=== PATIENT | female | born 1945 | race Asian ===

== ENCOUNTER 2017-09-02 09:04 | Inpatient (IN) | payer OTHER ==
[~2017-09-02] VITALS: Ht 167.6 cm; Wt 54.4 kg
[2017-09-02 09:04] VITALS: BP 142/87
[~2017-09-02 09:04] MED LIST: ALBU-136 IH; DOCU-300 PO; PRED15SO39 PO; PROM25TA85 PO; RANI-287 PO; RIVA15TA1 PO; TYL3 PO
[2017-09-02] MEDS ORDERED: NACL 0.9% 1,000 ML IV SCH (09:14)
[2017-09-02] MEDS ORDERED: ONDANSETRON 4 MG/2 ML VIAL IVP ONE (09:15)
[2017-09-02] MEDS ORDERED: MECLIZINE 25 MG TAB PO ONE (09:15)
[2017-09-02] MEDS ORDERED: DIAZEPAM PFS 10 MG/2 ML SYR IVP ONE (09:15)
[2017-09-02] MEDS ORDERED: LORazepam 2 MG/ML VIAL IVP ONE (09:35)
--- NOTE | 2017-09-02 09:46 | NUR ---
ASSUMED PATIENT CARE, CONCUR WITH TRIAGE. NURSING ASSESSMENT COMPLETED. SEEN AND EVALUATED BY PROVIDER, MSE COMPLETED.
[2017-09-02 10:24] LABS: BASOPHILS # (AUTO) 0.2 K/uL (0.00-0.22); BASOPHILS % (AUTO) 1.5 % (0.0-2.0); EOSINOPHILS # (AUTO) 0.2 K/uL (0-0.4); HEMATOCRIT 33.8 % (36-48); HEMOGLOBIN 11.6 g/dL (12.0-16.0); LYMPHOCYTES # (AUTO) 2.4 K/uL (2.5-16.5); LYMPHOCYTES % (AUTO) 20.3 % (20.5-51.1); MEAN CORPUSCULAR HEMOGLOBIN 30 pg (27-31); MEAN CORPUSCULAR HGB CONC 34 g/dL (33-37); MEAN CORPUSCULAR VOLUME 86 fL (80-94); MONOCYTES # (AUTO) 0.9 K/uL (0.8-1.0); MONOCYTES % (AUTO) 7.4 % (1.7-9.3); NEUTROPHILS # (AUTO) 8.2 K/uL (1.8-7.7); NEUTROPHILS % (AUTO) 68.8 % (42.2-75.2); PLATELET COUNT (AUTO) 366 K/uL (140-450); RED BLOOD CELL COUNT(AUTO) 3.92 MIL/uL (4.20-5.40); RED CELL DISTRIBUTION WIDTH 12.3 % (11.6-13.7); WHITE BLOOD COUNT (AUTO) 11.9 K/uL (4.8-10.8)
[2017-09-02 10:32] LABS: AMYLASE 30 U/L (25-115); LIPASE 103 U/L (73-393)
[2017-09-02 10:46] LABS: ALBUMIN 3.2 g/dL (3.4-5.0); ANION GAP 15.7 (8-16); ASPARTATE AMINOTRANSFERASE 19 U/L (15-37); CHLORIDE 108 mmol/L (98-107); CREATININE 0.9 mg/dL (0.6-1.3); GLUCOSE 135 mg/dL (74-106); SODIUM SERUM 143 mmol/L (136-145); TOTAL BILIRUBIN 0.7 mg/dL (0.0-1.0); UREA NITROGEN, BLOOD 16 mg/dL (7-18)
[2017-09-02 10:49] LABS: POTASSIUM 2.7 mmol/L (3.5-5.1)
[2017-09-02] MEDS ORDERED: KCL 20 MEQ/WATER INJ PREMIX 100 ML IV ONE (10:50)
[2017-09-02] MEDS ORDERED: METOCLOPRAMIDE 10 MG/2 ML INJ VIAL IVP ONE (11:10)
[2017-09-02] MEDS ORDERED: MECLIZINE 25 MG TAB PO PRN (12:05)
[2017-09-02] MEDS ORDERED: ONDANSETRON 4 MG/2 ML VIAL IVP PRN (12:05)
[2017-09-02] MEDS ORDERED: ACETAMINOPHEN 325 MG TAB PO PRN (12:05)
[2017-09-02] MEDS ORDERED: HYDROcodone/APAP 7.5/325 MG 1 TAB PO PRN (12:05)
--- NOTE | 2017-09-02 12:45 | NUR ---
Patient will be admitted to care of [facility]. Admited to TELEMETRY. Will go to room 112A. Belongings list completed. Report to SUSSY HARRIS AT BEDSIDE.
--- NOTE | 2017-09-02 12:45 | NUR ---
PATIENT TRANSFERRED TO INPATIENT UNIT VIA GURNEY, AND ACLS PROTOCOL. CONTINUITY OF CARE ENDORSED.
--- NOTE | 2017-09-02 12:50 | NUR ---
PT ARRIVED ON THE UNIT WITH 2 ER NURSES. PT IS AWAKE AND ORIENTED. INTRODUCED MYSELF AND UPDATED THE BOARD. PT IS CANTONESE SPEAKING. SON IS AT BEDSIDE. SPEAKS VERY LITTLE UKRAINIAN. V/S WITHIN NORMAL RANGE. SKIN INTACT. TELE MONITOR ON, YELLOW SOCKS ON, YELLOW SIGN AT DOOR, YELLOW ARM BAND ON, MRSA SCREENING DONE. PT NAUSEATED. DRY HEAVES. GAVE EXTRA VOMIT BAGS. WILL KEEP PT COMFORTABLE. WILL CONTINUE TO MONITOR PT.
[2017-09-02 13:30] VITALS: BP 129/82
[2017-09-02 13:58] LABS: PROTHROMBIN TIME 10.3 secs (10.8-13.4)
[2017-09-02 14:16] LABS: CHOL/HDL RATIO 4.5 (1-4.5); FREE T4 (FREE THYROXINE) 1.12 ng/dL (0.76-1.46); MAGNESIUM 1.9 mg/dL (1.8-2.4); PHOSPHORUS 2.5 mg/dL (2.5-4.9); THYROID STIMULATING HORMONE 0.84 uIU/mL (0.34-3.74)
[2017-09-02] MEDS ORDERED: AMLO5TAB PO (14:49)
[2017-09-02] MEDS ORDERED: MONT10TA35 PO (14:49)
[2017-09-02] MEDS ORDERED: OMEP40EC14 PO (14:49)
[2017-09-02] MEDS ORDERED: CETI-32 PO (14:49)
[2017-09-02] MEDS ORDERED: [UNRECOGNIZED DRUG - CODE] PO (14:49)
[2017-09-02] MEDS ORDERED: CLOP75TA26 PO (14:52)
[2017-09-02] MEDS ORDERED: POTASSIUM CHLORIDE 40 MEQ, LIDOCAINE 1% 25 MG in NACL 0.9% 250 ML IV SCH (15:00)
[2017-09-02] MEDS ORDERED: NITROGLYCERIN 0.4 MG TAB SL PRN (15:00)
--- NOTE | 2017-09-02 15:00 | NUR ---
URINE SAMPLE SENT TO LAB. INFLUENZA AB SCREENING DONE. REQUESTED SCD'S. WILL CONTINUE TO MONITOR PT.
[2017-09-02] MEDS ORDERED: ALBUTEROL SULFATE/IPRATROPIU 3 ML SOL IH PRN (15:15)
[2017-09-02] MEDS: METOCLOPRAMIDE 10 MG/2 ML INJ VIAL IVP PRN (15:18)
[2017-09-02] MEDS: NACL 0.9% 1,000 ML IV SCH ×2 (15:19→21:16)
--- NOTE | 2017-09-02 15:20 | NUR ---
ADMINISTERED REGLAN FOR NAUSEA. WILL CONTINUE TO MONITOR PT. SON STILL AT BEDSIDE. REQUESTED BED BOWDEN.
[2017-09-02] MEDS ORDERED: INFLUENZA VIRUS VACCINE QUAD 0.5 ML SYR IMVAC SCH (15:35)
[2017-09-02] MEDS ORDERED: PNEUMOCOCCAL VACCINE 23 MCG/0.5 ML VIAL IMVAC SCH (15:35)
[2017-09-02 16:00] VITALS: BP 118/76
[2017-09-02 16:11] LABS: BARBITURATE, URINE NEG. ng/ml (NEG <=200); BENZODIAZEPINE, URINE NEG. ng/mL (NEG <=200); CANNABINOID, URINE NEG. ng/mL (NEG <=50); COCAINE, URINE NEG. ng/mL (NEG <=300); OPIATE, URINE NEG. ng/mL (NEG <=2000); PHENCYCLIDINE SCREEN,URINE NEG. ng/mL (NEG <=25)
--- NOTE | 2017-09-02 18:41 | NUR ---
PT SLEEPING. DAUGHTER IN LAW WENT HOME TO SHOWER. WILL BE BACK LATER WITH HER . DINNER AT BEDSIDE. WILL TRY AND EAT AFTER SHE WAKES UP.
[2017-09-02 18:44] LABS: APPEARANCE,URINE CLEAR (CLEAR); BILIRUBIN,URINE NEGATIVE (NEGATIVE); BLOOD, URINE 2+ (NEGATIVE); COLOR,URINE YELLOW (YELLOW); LEUKOCYTE ESTERASE ,URINE NEGATIVE (NEGATIVE); NITRITE, URINE NEGATIVE (NEGATIVE); PH,URINE 6.5 (5.0-9.0); UGLUCOSE NEGATIVE (NEGATIVE)
[2017-09-02 18:47] LABS: RBC,URINE 11-20 (MOD) /HPF (0-5); WBC,URINE 0-5 (RARE) /HPF (0-5)
--- NOTE | 2017-09-02 19:10 | NUR ---
ENDORSED PT TO THE VOTING MACHINE REPAIRER NURSE AT BEDSIDE FOR CONTINUITY OF CARE. PT IN STABLE CONDITION.
--- NOTE | 2017-09-02 19:15 | NUR ---
RECEIVED PT FROM KIMBERLY RN PT RESTING ON BED AAOX4 IV ON RT ARM INFUSING WELL COMPLAINTS FOR NAUSEAS DENIES ANY PAIN NOT DISTRESS NOTED INITIAL ASSESSMENT DONE
[2017-09-02 19:58] LABS: ANION GAP 17.6 (8-16); CARBON DIOXIDE 21.8 mmol/L (21-32); CHLORIDE 106 mmol/L (98-107); CREATININE 0.8 mg/dL (0.6-1.3); GLUCOSE 117 mg/dL (74-106); POTASSIUM 4.4 mmol/L (3.5-5.1); SODIUM SERUM 141 mmol/L (136-145); UREA NITROGEN, BLOOD 13 mg/dL (7-18)
[2017-09-02 20:00] VITALS: BP 118/63
--- NOTE | 2017-09-02 20:00 | NUR ---
PT IS ASSISTED TO USED BED BOWDEN VOIDING WELL YELLOW URINE
--- NOTE | 2017-09-02 20:10 | NUR ---
PT IS ENDORSED TO JEFRY HI FOR CONTINUITY ;OF CARE
[2017-09-02] MEDS ORDERED: DOCUSATE SODIUM 100 MG GELCAP PO SCH (21:00)
[2017-09-02] MEDS: DOCUSATE SODIUM 100 MG GELCAP PO SCH (21:16)
[2017-09-02] MEDS: ATORVASTATIN 20 MG TAB PO SCH (21:16)
[2017-09-02] MEDS: METOPROLOL 25 MG TAB PO SCH (21:17)
[2017-09-02] MEDS: THEOPHYLLINE 300 MG TABER PO SCH (21:17)
--- NOTE | 2017-09-02 22:15 | NUR ---
ASSISTED PT TO BATHROOM. NO C/O PAIN OR DIZZINESS. DAUGHTER IN LAW AT BEDSIDEE. CALL LIGHT WITHIN REACH.
[2017-09-03] VITALS: BP 110/66
--- NOTE | 2017-09-03 00:30 | NUR ---
PT SLEEPING BUT WAKES EASILY. DAUGHTER IN LAW AT BEDSIDE. NO S/S OF DISTRESS. CALL LIGHT WITHIN REACH.
[2017-09-03] MEDS: METOCLOPRAMIDE 10 MG/2 ML INJ VIAL IVP PRN (01:53)
--- NOTE | 2017-09-03 01:55 | NUR ---
ASSISTED PT TO BATHROOM. C/O VOMITING. REGLAN 10 MG GIVEN. DAUGHTER IN LAW AT BED SIDE. CALL LIGHT WITHIN REACH.
--- NOTE | 2017-09-03 03:54 | NUR ---
ASSISTED PT TO BATHROOM AND BACK TO BED. NO C/O DIZZINESS OR NAUSEA. FALL PRECAUTION IN PLACE. CALL LIGHT WITHIN REACH.
[2017-09-03 04:00] VITALS: BP 106/60
[2017-09-03] MEDS: NACL 0.9% 1,000 ML IV SCH ×3 (04:27→21:01)
[2017-09-03] MEDS: PANTOPRAZOLE 40 MG TABEC PO SCH (06:06)
--- NOTE | 2017-09-03 06:10 | NUR ---
DUE MED GIVEN. PT TOLERATED WELL. NO C/O NAUSEA OR VOMITING. NO DISTRESS NOTED. CALL LIGHT WITHIN REACH.
--- NOTE | 2017-09-03 07:20 | NUR ---
ENDORSED PT TO DAY SHIFT NURSE. PT IN STABLE CONDITION.
[2017-09-03 07:42] LABS: BASOPHILS # (AUTO) 0.1 K/uL (0.00-0.22); BASOPHILS % (AUTO) 0.9 % (0.0-2.0); EOSINOPHILS # (AUTO) 0.2 K/uL (0-0.4); EOSINOPHILS % (AUTO) 1.7 % (0.0-4.0); HEMATOCRIT 35.9 % (36-48); HEMOGLOBIN 12.1 g/dL (12.0-16.0); LYMPHOCYTES # (AUTO) 2.3 K/uL (2.5-16.5); LYMPHOCYTES % (AUTO) 24.8 % (20.5-51.1); MEAN CORPUSCULAR HEMOGLOBIN 29 pg (27-31); MEAN CORPUSCULAR HGB CONC 34 g/dL (33-37); MEAN CORPUSCULAR VOLUME 87 fL (80-94); MONOCYTES # (AUTO) 0.7 K/uL (0.8-1.0); MONOCYTES % (AUTO) 7.4 % (1.7-9.3); NEUTROPHILS # (AUTO) 6.2 K/uL (1.8-7.7); NEUTROPHILS % (AUTO) 65.2 % (42.2-75.2); PLATELET COUNT (AUTO) 369 K/uL (140-450); RED BLOOD CELL COUNT(AUTO) 4.15 MIL/uL (4.20-5.40); RED CELL DISTRIBUTION WIDTH 12.4 % (11.6-13.7); WHITE BLOOD COUNT (AUTO) 9.5 K/uL (4.8-10.8)
[2017-09-03 07:48] LABS: ANION GAP 12.4 (8-16); CARBON DIOXIDE 26.2 mmol/L (21-32); CHLORIDE 109 mmol/L (98-107); CREATININE 0.9 mg/dL (0.6-1.3); GLUCOSE 97 mg/dL (74-106); POTASSIUM 3.6 mmol/L (3.5-5.1); SODIUM SERUM 144 mmol/L (136-145); UREA NITROGEN, BLOOD 12 mg/dL (7-18)
[2017-09-03 07:52] LABS: MAGNESIUM 2.3 mg/dL (1.8-2.4); PHOSPHORUS 3.4 mg/dL (2.5-4.9)
[2017-09-03 08:00] VITALS: BP 114/74
--- NOTE | 2017-09-03 08:00 | NUR ---
PT IN BED SLEEPING CALMLY. ABLE TO AROUSE EASOLY VIA VERBAL COMMAND. PT IS AERT AND ORIENTED X4. NO RESP DISTRESS NOTED. SIDE RAILS UP X4, BED IN LOW POSITION. V/S STABLE.
--- NOTE | 2017-09-03 08:54 | NUR ---
PT HAS BEEN SCREENED AND CATEGORIZED MODERATE NUTIRITON RISK. PT WILL BE SEEN WITHIN 3-5 DAYS OF ADMISSION. 09/03/17-09/05/[address]
--- NOTE | 2017-09-03 09:20 | NUR ---
PT REMAINS CALM IN BED. NO ACUTE DISTRESS OR CONDITION CHANGES NOTED. [id number] IS AT THE BED SITE TRANSLATING FOR PT. PT AMBULATED WITH PT WITH MON ASSISTANCE. PT DENIES ANY DIZZINESS, PAIN OR SOB. V/S STABLE.
[2017-09-03] MEDS: ASPIRIN 81 MG TAB.CHEW PO SCH (09:39)
[2017-09-03] MEDS: LORATADINE 10 MG TAB PO SCH (09:39)
[2017-09-03] MEDS: DOCUSATE SODIUM 100 MG GELCAP PO SCH ×2 (09:40→20:58)
[2017-09-03] MEDS: METOPROLOL 25 MG TAB PO SCH ×2 (09:41→21:00)
[2017-09-03] MEDS: MONTELUKAST SODIUM 10 MG TAB PO SCH (09:42)
[2017-09-03] MEDS: CLOPIDOGREL 75 MG TAB PO SCH (09:42)
[2017-09-03] MEDS: LISINOPRIL 5 MG TAB PO SCH (09:43)
[2017-09-03] MEDS: amLODIPine 5 MG TAB PO SCH (09:50)
[2017-09-03] MEDS: THEOPHYLLINE 300 MG TABER PO SCH ×2 (09:51→20:59)
[2017-09-03 12:00] VITALS: BP 102/60
--- NOTE | 2017-09-03 13:39 | NUR ---
PT IS SLEEPING IN BED COMFORTABLY. NO DISTRESS OR PAIN NOTED. COOLING MEASURE IN PROGRESS DUE TO LOW GRADE TEMP OF 99.3 AT NOON. PT REFUSE TO EAT THE MEALS PROVIDED HERE IN THE HOSPITAL. [id number] STATES THAT PT PREFER MEALS FROM HOME AND SHE BROUGHT PT SOME.
--- NOTE | 2017-09-03 15:40 | NUR ---
PT AWAKE SITTING IN BED TALKING TO HER [id number]. TEMP IS DOWN TO 98.4. NO ACUTE DISTRESSOR PAIN. PT REMAINS IN NORMAL SINUS RHYTHM ON THE MONITOR. V/S STABLE.
[2017-09-03 16:00] VITALS: BP 97/57
--- NOTE | 2017-09-03 19:08 | NUR ---
PT IN BED SLEEPING OFF AND ON. NO COMPALINT OF PAIN, SOB OR DIZZINESS. PT WAS ASYMPTOMATIC WITH BP OF 97/57 AT 1600. REMAINS IN NSR ON THE MONITOR. CALL LIGHT WITHIN REACH, BED IN LOW POSITION, BED ALARM ON.
--- NOTE | 2017-09-03 19:15 | NUR ---
RECEIVED PT AWAKE ON BED, AAOX4, MANDARIN SPEAKING ONLY, VITAL SIGNS TAKEN, BP ON THE LOW SIDE BUT STABLE, NO SIGNS OF PAIN, OCCASIONAL COUGH NOTED, NO N/V AT THIS TIME, IVF INFUSING WELL, SAFETY MEASURES IN PLACE, CALL LIGHT WITHIN REACH.
[2017-09-03 20:00] VITALS: BP 92/56
[2017-09-03] MEDS: ATORVASTATIN 20 MG TAB PO SCH (20:59)
--- NOTE | 2017-09-03 22:20 | NUR ---
PT AMBULATORY TO BR WITH STANDBY ASSIST, VOIDED FREELY, PER DAUGHTER, PT STILL HAVING SLIGHT DIZZINESS ON AMBULATION, MONITORED CLOSELY.
[2017-09-04] VITALS: BP 94/60
--- NOTE | 2017-09-04 | NUR ---
PT SLEEPING, EASILY AROUSABLE, VITAL SIGNS STABLE, DENIES ANY PAIN, AMBULATED TO BR WITH ASSIST, SAFETY MEASURES IN PLACE, IVF INFUSING WELL CONTINUE TO MONITOR CLOSELY.
[2017-09-04 04:00] VITALS: BP 104/62
--- NOTE | 2017-09-04 04:00 | NUR ---
PT SLEEPING, EASILY AROUSABLE, VITAL SIGNS STABLE, NO DISTRESS NOTED, MONITORED CLOSELY.
[2017-09-04] MEDS: NACL 0.9% 1,000 ML IV SCH (04:44)
[2017-09-04] MEDS: PANTOPRAZOLE 40 MG TABEC PO SCH (06:01)
--- NOTE | 2017-09-04 06:10 | NUR ---
PT AWAKE, DUE PO MEDICATION ADMINISTERED, NO N/V THE WHOLE SHIFT, IVF INFUSING WELL, FOR US THYROID TODAY, MONITORED CLOSELY.
--- NOTE | 2017-09-04 07:15 | NUR ---
PT SLEEPING, NO SIGNS OF DISTRESS, REPORT GIVEN TO SUSSY GARCIA FOR CONTINUITY OF CARE.
--- NOTE | 2017-09-04 07:20 | NUR ---
ENDORSEMENT RECEIVED FROM FEED HANDLER NURSE. PATIENT IS AWAKE, ALERT. RESPIRATION EVEN, UNLABOR. SKIN DRY AND WARM. IV PATENT AND INTACT. DENIED PAIN, DIZZINESS AT THIS TIME. PLAN OF CARE WAS DISCUSSED WITH PATIENT. BED AT LOW POSITION, SIDE RAILS UP. CALL LIGHT WITHIN REACH.
[2017-09-04 07:44] LABS: BASOPHILS # (AUTO) 0.1 K/uL (0.00-0.22); BASOPHILS % (AUTO) 1.4 % (0.0-2.0); EOSINOPHILS # (AUTO) 0.2 K/uL (0-0.4); EOSINOPHILS % (AUTO) 2.6 % (0.0-4.0); HEMATOCRIT 35.1 % (36-48); HEMOGLOBIN 11.6 g/dL (12.0-16.0); LYMPHOCYTES % (AUTO) 25.5 % (20.5-51.1); MEAN CORPUSCULAR HEMOGLOBIN 29 pg (27-31); MEAN CORPUSCULAR HGB CONC 33 g/dL (33-37); MEAN CORPUSCULAR VOLUME 88 fL (80-94); MONOCYTES # (AUTO) 0.7 K/uL (0.8-1.0); NEUTROPHILS # (AUTO) 4.8 K/uL (1.8-7.7); NEUTROPHILS % (AUTO) 61.5 % (42.2-75.2); PLATELET COUNT (AUTO) 319 K/uL (140-450); RED BLOOD CELL COUNT(AUTO) 3.98 MIL/uL (4.20-5.40); RED CELL DISTRIBUTION WIDTH 12.3 % (11.6-13.7); WHITE BLOOD COUNT (AUTO) 7.8 K/uL (4.8-10.8)
[2017-09-04 08:00] VITALS: BP 115/63
[2017-09-04 08:02] LABS: ANION GAP 14.4 (8-16); CARBON DIOXIDE 24.8 mmol/L (21-32); CHLORIDE 110 mmol/L (98-107); POTASSIUM 3.2 mmol/L (3.5-5.1); SODIUM SERUM 146 mmol/L (136-145)
[2017-09-04 08:25] LABS: CREATININE 0.9 mg/dL (0.6-1.3); GLUCOSE 100 mg/dL (74-106); UREA NITROGEN, BLOOD 10 mg/dL (7-18)
[2017-09-04] MEDS: CLOPIDOGREL 75 MG TAB PO SCH (09:00)
[2017-09-04] MEDS: METOPROLOL 25 MG TAB PO SCH (09:00)
[2017-09-04] MEDS: THEOPHYLLINE 300 MG TABER PO SCH (09:00)
[2017-09-04] MEDS: MONTELUKAST SODIUM 10 MG TAB PO SCH (09:00)
[2017-09-04] MEDS: ASPIRIN 81 MG TAB.CHEW PO SCH (09:01)
[2017-09-04] MEDS: LORATADINE 10 MG TAB PO SCH (09:01)
[2017-09-04] MEDS: DOCUSATE SODIUM 100 MG GELCAP PO SCH (09:01)
[2017-09-04] MEDS: LISINOPRIL 5 MG TAB PO SCH (09:01)
[2017-09-04] MEDS: amLODIPine 5 MG TAB PO SCH (09:01)
[2017-09-04] MEDS ORDERED: MECL-272 PO (09:12)
[2017-09-04] MEDS ORDERED: ONDA4TAB PO (09:18)
[2017-09-04] MEDS ORDERED: KCL 20 MEQ/WATER INJ PREMIX 200 ML IV ONE (11:30)
--- NOTE | 2017-09-04 11:53 | NUR ---
DR. FREIRE WAS MADE OF AWARE OF POTASSIUM LEVEL 3.2. WILL MEDICATE PER ORDER
[2017-09-04 12:00] VITALS: BP 111/59
[2017-09-04] MEDS ORDERED: POTASSIUM CHLORIDE 40 MEQ in NACL 0.9% 250 ML IV SCH (12:00)
--- NOTE | 2017-09-04 12:36 | NUR ---
PATIENT IS AWAKE, ALERT. RESPIRATION EVEN, UNLABOR ON ROOM AIR. DENIED PAIN, DIZZINESS AT THIS TIME. MED WAS GIVEN PER ORDER. FAMILY AT BEDSIDE. CALL LIGHT WITHIN REACH
--- NOTE | 2017-09-04 13:45 | NUR ---
P/T HERE TO EXERCISE WITH PT.
--- NOTE | 2017-09-04 14:15 | NUR ---
PATIENT IS AWAKE, ALERT. RESPIRATION EVEN, UNLABOR ON ROOM AIR. DENIED DIZZINESS AT THIS TIME. PT AT BEDSIDE. CALL LIGHT WITHIN REACH
[2017-09-04] MEDS ORDERED: POTASSIUM CHLORIDE 10 MEQ TABER PO SCH (14:55)
--- NOTE | 2017-09-04 15:30 | NUR ---
DISCHARGE INSTRUCTION WAS GIVEN TO THE PATIENT AND FAMILY, [place] [id number] [address]. PATIENT VERBALIZED UNDERSTANDING. IV WAS REMOVED CATHETER INTACT, NO ACTIVE BLEEDING SEEN, PATIENT TOLERATED WELL. ID BAND WAS REMOVED. FLU VAC, PNEUMO VAC WERE GIVEN PER ORDER. PATIENT WAS ESCORTED OUT BY STAFF IN WHEELCHAIR. PATIENT IS STABLE AT THIS TIME.
--- NOTE | 2017-09-04 16:15 | NUR ---
Social Service Note: Per patient's nephew Rufus Hickmann , patient does not have a fww at home. I explained to him I will coordinate home health services for patient and fww. He verbalized understanding and stated he does not have a home health company preference. He requested I contact patient's son to verify . Per , patient does not have a fww at home. I faxed home health referral to [facility] , fax . Per Brandy, they will send a nurse to patient's home tomorrow and will obtain fww as well, will be delivered to patient's home, charge nurse Janusz made aware.
--- NOTE | 2017-09-04 16:49 | NUR ---
PHYSICAL THERAPY CO-SIGN The Physical Therapy Progress Notes documented by Supervisor Transferring And Boxing have been reviewed. Reviewed/Co-Signed by: Mercedes Nathan PT Documentation Done by:Gerald BLACK PTA I CONCUR WITH THE DOCUMENTATION COMPLETED BY THE ABOVE MENTAL HEALTH ASSISTANT Addendum: 09/04/17 at 1650 by Mercedes Nathan PT Amended: Links added.
== END 2017-09-04 15:30 | disposition home or self-care (01) | DRG 74 ==
LOC: MED 09:04 → MTU 12:05
PROVIDERS: ADMIT Family Medicine Sports Medicine; ATTEND Family Medicine Sports Medicine
PROC: 3E0234Z Introduction of Serum, Toxoid and Vaccine into Muscle, Percutaneous Approach (ICD-10-PCS; principal; 2017-09-04)
PROC: 3E0234Z Introduction of Serum, Toxoid and Vaccine into Muscle, Percutaneous Approach (ICD-10-PCS; 2017-09-04)
DX: G90.9 Disorder of the autonomic nervous system, unspecified (principal); E44.1 Mild protein-calorie malnutrition; Z68.1 Body mass index [BMI] 19.9 or less, adult; M94.0 Chondrocostal junction syndrome [Tietze]; E87.6 Hypokalemia; K21.9 Gastro-esophageal reflux disease without esophagitis; E78.5 Hyperlipidemia, unspecified; K52.9 Noninfective gastroenteritis and colitis, unspecified; I10 Essential (primary) hypertension; J45.909 Unspecified asthma, uncomplicated; E07.9 Disorder of thyroid, unspecified; Z23 Encounter for immunization; Z86.711 Personal history of pulmonary embolism
CPT/HCPCS: 36415; 70450; 71045; 76536; 80048; 80053; 80305; 81001; 82150; 83036; 83690; 83735; 83880; 84100; 84439; 84443; 84484; 85025; 85610; 85730; 87081; 87086; 87804; 90658; 90732; 93005; 93880; 94640; 96361; 96374; 96375; 97110; 97116; 99285; J2001; J2060; J2405; J2765; J3480; J7030; J8597; Q0092

== ENCOUNTER 2021-02-26 19:06 | Inpatient (IN) | payer OTHER ==
[~2021-02-26] VITALS: Ht 162.6 cm; Wt 68.0 kg
[~2021-02-26 19:06] MED LIST changes: +ALBU-118 IH; -ALBU-136 IH; +AMLO5TAB PO; +CETI10TA81 PO; +CLOP75TA26 PO; +MECL-311 PO; +MONT10TA35 PO; +OMEP40EC23 PO; +ONDA4TAB PO; -PRED15SO39 PO; -PROM25TA85 PO; -RANI-287 PO; -RIVA15TA1 PO; -TYL3 PO; +[UNRECOGNIZED DRUG - CODE] PO
[2021-02-26 19:33] VITALS: BP 122/83
--- NOTE | 2021-02-26 19:48 | NUR ---
75/F BIB SON C/O DIFFICULTY BREATHING, SOB, SORE THROAT, MILD COUGH, AND GENERALIZED WEAKNESS FOR A MONTH AND SYMPT PROGRESSIVELY WORSE. PT STATES SHE FEELS DISCOMFORT EVERYTIME SHE BREATHES DEEP. LUNG MEZA SLIGHTLY DIMINISHED THROUGHOUT. PT DENIES ANY FEVER, NAUSEA, VOMITING, AND CHILLS. RELATIVE AT BEDSIDE. AAOx4. VSS. PMH: Asthma, HTN, HDL NKDA
--- NOTE | 2021-02-26 19:57 | NUR ---
Called for per diem interpreter; language mandarin. Continuous Dryout Operator Helper #[id number]
--- NOTE | 2021-02-26 20:02 | NUR ---
ERMD at bedside for examination
[2021-02-26] MEDS ORDERED: NITROGLYCERIN 2% 1 GM PKT TP ONE (20:10)
--- NOTE | 2021-02-26 20:30 | NUR ---
EKG PERFORMED AT BEDSIDE. EKG READS SINUS RHYTHM @ 79
[2021-02-26 20:32] LABS: BASOPHILS # (AUTO) 0.1 K/uL (0.00-0.22); BASOPHILS % (AUTO) 0.8 % (0.0-2.0); EOSINOPHILS # (AUTO) 0.1 K/uL (0-0.4); EOSINOPHILS % (AUTO) 1.1 % (0.0-4.0); HEMATOCRIT 34.8 % (36-48); HEMOGLOBIN 11.3 g/dL (12.0-16.0); LYMPHOCYTES # (AUTO) 2.2 K/uL (2.5-16.5); LYMPHOCYTES % (AUTO) 25.9 % (20.5-51.1); MEAN CORPUSCULAR HEMOGLOBIN 28 pg (27-31); MEAN CORPUSCULAR HGB CONC 32 g/dL (33-37); MEAN CORPUSCULAR VOLUME 85.4 fL (80-94); MONOCYTES # (AUTO) 0.8 K/uL (0.8-1.0); MONOCYTES % (AUTO) 10.1 % (1.7-9.3); NEUTROPHILS # (AUTO) 5.2 K/uL (1.8-7.7); NEUTROPHILS % (AUTO) 62.1 % (42.2-75.2); PLATELET COUNT (AUTO) 361 K/uL (140-450); RED BLOOD CELL COUNT(AUTO) 4.07 MIL/uL (4.20-5.40); RED CELL DISTRIBUTION WIDTH 14.3 % (11.6-13.7); WHITE BLOOD COUNT (AUTO) 8.4 K/uL (4.8-10.8)
--- NOTE | 2021-02-26 20:32 | NUR ---
xray at bedside.
[2021-02-26 20:49] LABS: ALBUMIN 3.5 g/dL (3.4-5.0); ASPARTATE AMINOTRANSFERASE 70 U/L (15-37); CARBON DIOXIDE 22.2 mmol/L (21-32); CHLORIDE 107 mmol/L (98-107); CREATININE 1.1 mg/dL (0.6-1.3); GLUCOSE 103 mg/dL (74-106); POTASSIUM 3.2 mmol/L (3.5-5.1); SODIUM SERUM 141 mmol/L (136-145); TOTAL BILIRUBIN 0.7 mg/dL (0.0-1.0); UREA NITROGEN, BLOOD 20 mg/dL (7-18)
[2021-02-26] MEDS ORDERED: ASPIRIN 81 MG TAB.CHEW PO ONE (20:55)
--- NOTE | 2021-02-26 21:28 | NUR ---
HANK at bedside for admission explanation. Non Profit Financial Controller called; language mandarin. Non Profit Financial Controller #[phone]
[2021-02-26] MEDS ORDERED: hePARIN / DEXT 5% PREMIX 250 ML IV SCH ×2 (21:50→23:45)
--- NOTE | 2021-02-26 22:18 | NUR ---
Attempted to call report to SU RN but was unable to complete report due to patient care-- RN asked to call back.
--- NOTE | 2021-02-26 22:47 | NUR ---
Attempted to call report to SUSSY BLUE but was unable to complete report due to patient care-- RN asked to call back or call SUSSY Sorto charge.
--- NOTE | 2021-02-26 22:49 | NUR ---
Attempted to call SUSSY Sorto charge for report -- no answer.
--- NOTE | 2021-02-26 23:04 | NUR ---
Patient will be admitted to care of [facility]. Admited to Telemetry. Will go to room 112b. Belongings list completed. Report to Catalina HI.
[2021-02-26] MEDS ORDERED: HEPARIN PER PHARMACY MC PRN (23:45)
--- NOTE | 2021-02-26 23:45 | NUR ---
ER NURSE CALLED GAVE REPORT. PATIENT WAS BROUGHT TO [facility] UNIT VIA GURNEY UNDER THE CARE OF DR. MCKEON. AWAKE, ALERT ORIENTED X4. NO ACUTE DISTRESS NOTED AT THIS TIME. SKIN IS INTACT. ORIENTED TO ROOM, CALL LIGHT, RESTROOM, STAFF. SAFETY MEASURES IN PLACE. MRSA NARES SCREENING DONE. CALL LIGHT WITHIN REACH
[2021-02-27 00:16] LABS: PROTHROMBIN TIME 9.7 secs (10.8-13.4)
[2021-02-27] MEDS ORDERED: ALBU0.0912 INH (00:21)
[2021-02-27] MEDS ORDERED: AMLO2.5T PO (00:21)
[2021-02-27] MEDS ORDERED: MONT10TA35 PO (00:21)
[2021-02-27] MEDS ORDERED: MECL-303 PO (00:21)
[2021-02-27] MEDS ORDERED: CLOP75TA55 PO (00:21)
[2021-02-27] MEDS ORDERED: OMEP20EC11 PO (00:21)
[2021-02-27] MEDS ORDERED: VOL25 PO (00:21)
[2021-02-27] MEDS ORDERED: ONDA4TAB PO (00:21)
[2021-02-27] MEDS ORDERED: CETI1SOL12 PO (00:21)
[2021-02-27] MEDS ORDERED: NACL 0.9% 1,000 ML IV ONE (00:25)
[2021-02-27] MEDS: hePARIN / DEXT 5% PREMIX 250 ML IV SCH ×2 (02:28→09:56)
--- NOTE | 2021-02-27 02:28 | NUR ---
STARTED HEPARIN DRIP INFUSING WELL ON THE RAC.
[2021-02-27 04:00] VITALS: BP 100/63
--- NOTE | 2021-02-27 07:15 | NUR ---
ENDORSED TO AM RN FOR CONTINUITY OF CARE. PATIENT IS STABLE.
--- NOTE | 2021-02-27 07:20 | NUR ---
RECEIVED REPORT FROM NIGHT NURSE PT IS AAOX4 ON ROOM AIR, SKIN INTACT, CARDIAC DIET, IV INTACT ON RIGHT AC WITH HEPARIN DRIP AT 800 UNITS/HR INFUSING WELL, AMBULATORY, SCHEDULED APTT AT 0825. SAFETY MEASURES IN PLACE AND CALL LIGHT WITHIN REACH. WILL CONTINUE TO MONITOR.
[2021-02-27] MEDS ORDERED: POTASSIUM CHLORIDE 10 MEQ TABER PO SCH (07:36)
[2021-02-27 08:00] VITALS: BP 105/70
--- NOTE | 2021-02-27 08:27 | NUR ---
PT VITAL SIGNS TAKEN, PT IS STABLE. POTASSIUM GIVEN FOR POTASSIUM LEVELS OF 3.2. LINE PRODUCER AT BEDSIDE, PT VERBALIZED SOB WHEN TAKING 2-3 STEPS, CANNOT COMPLETE ADL WITHOUT HAVING SOB, LINE PRODUCER RECOMMENDED ECHO AND OTHER TESTS. WILL CONTINUE TO MONITOR.
[2021-02-27] MEDS ORDERED: MECLIZINE 25 MG TAB PO PRN (09:15)
--- NOTE | 2021-02-27 09:18 | NUR ---
PATIENT HAS BEEN SCREENED AND CATEGORIZED MODERATE NUTRITION RISK. PATIENT WILL BE SEEN WITHIN 3-5 DAYS OF ADMISSION. 03/01/21 03/03/[address]
[2021-02-27] MEDS ORDERED: POTASSIUM CHLORIDE 10 MEQ TABER PO PRN (09:20)
[2021-02-27] MEDS ORDERED: LORazepam 2 MG/ML VIAL IM/IVP PRN (09:20)
[2021-02-27] MEDS ORDERED: ACETAMINOPHEN 325 MG TAB PO PRN (09:20)
[2021-02-27] MEDS ORDERED: ONDANSETRON 4 MG/2 ML VIAL IM/IVP PRN (09:20)
[2021-02-27] MEDS ORDERED: MORPHINE SULFATE 2 MG/ML SYR IVP PRN (09:20)
[2021-02-27] MEDS ORDERED: HYDROcodone/APAP 5/325 MG 1 TAB TAB PO PRN (09:20)
[2021-02-27] MEDS ORDERED: MAG SULF 2000 MG/WATER PREMIX 50 ML IV PRN (09:20)
[2021-02-27] MEDS ORDERED: ZOLPIDEM 5 MG TAB PO PRN (09:20)
[2021-02-27] MEDS ORDERED: DOCUSATE SODIUM 100 MG GELCAP PO PRN (09:20)
[2021-02-27 09:36] LABS: BASOPHILS # (AUTO) 0.1 K/uL (0.00-0.22); BASOPHILS % (AUTO) 1.3 % (0.0-2.0); EOSINOPHILS # (AUTO) 0.1 K/uL (0-0.4); EOSINOPHILS % (AUTO) 1.7 % (0.0-4.0); LYMPHOCYTES % (AUTO) 30.5 % (20.5-51.1); MEAN CORPUSCULAR HEMOGLOBIN 28 pg (27-31); MEAN CORPUSCULAR HGB CONC 33 g/dL (33-37); MEAN CORPUSCULAR VOLUME 84.5 fL (80-94); MONOCYTES # (AUTO) 0.6 K/uL (0.8-1.0); MONOCYTES % (AUTO) 8.3 % (1.7-9.3); NEUTROPHILS # (AUTO) 3.9 K/uL (1.8-7.7); NEUTROPHILS % (AUTO) 58.2 % (42.2-75.2); PLATELET COUNT (AUTO) 303 K/uL (140-450); RED BLOOD CELL COUNT(AUTO) 3.56 MIL/uL (4.20-5.40); RED CELL DISTRIBUTION WIDTH 14.7 % (11.6-13.7); WHITE BLOOD COUNT (AUTO) 6.7 K/uL (4.8-10.8)
[2021-02-27 09:52] LABS: ALBUMIN 2.6 g/dL (3.4-5.0); AMYLASE 28 U/L (25-115); ANION GAP 18.8 (8-16); ASPARTATE AMINOTRANSFERASE 40 U/L (15-37); CARBON DIOXIDE 18.3 mmol/L (21-32); CHLORIDE 111 mmol/L (98-107); GLUCOSE 101 mg/dL (74-106); LIPASE 113 U/L (73-393); MAGNESIUM 1.9 mg/dL (1.8-2.4); PHOSPHORUS 3.5 mg/dL (2.5-4.9); POTASSIUM 3.1 mmol/L (3.5-5.1); SODIUM SERUM 145 mmol/L (136-145); THYROID STIMULATING HORMONE 1.88 uIU/mL (0.34-3.74); UREA NITROGEN, BLOOD 16 mg/dL (7-18)
--- NOTE | 2021-02-27 10:00 | NUR ---
PT APTT 42.4 HEPARIN DRIP INCREASED FROM 800 MLS/HR TO 950 MLS/HR AND 2000 UNITS HEPARIN BOLUS GIVEN. SCHEDULED APTT DRAW AT 1600.
[2021-02-27 10:11] LABS: PROTHROMBIN TIME 10.1 secs (10.8-13.4)
[2021-02-27 12:00] VITALS: BP 96/68
[2021-02-27] MEDS: ONDANSETRON 4 MG TAB PO SCH ×2 (12:09→18:25)
--- NOTE | 2021-02-27 12:11 | NUR ---
SCHEDULED MEDICATION GIVEN PT TOLERATED WELL AND PT REFUSED TO EAT.
--- NOTE | 2021-02-27 14:00 | NUR ---
INFORMED DR. MERCHANT OF CONSULT FOR PULMONARY HYPERTENSION. RESPONDED AND IS AWARE OF THIS CONSULT.
--- NOTE | 2021-02-27 15:04 | NUR ---
DC PLANNING: MET WITH PATIENT AND HER SON AT BEDSIDE. PATIENT LIVES IN A SINGLE STORY HOME, C/O SOB AND FATIGUE X 3 MONTHS. EXERTIONAL DYSPNEA NOTED, SATTING 95%. RESIDES WITH HER NEPHEW AND HIS CHILDREN, FAMILY PROVIDES ANY ASSISTANCE NEEDED. PATIENT IS INDEPENDENT IN ALL CARE, NO PRIOR DME OR HOME HEALTH. P.T. RECOMMENDS HOME HEALTH FOR A SAFETY EVAL. CM WILL CONTINUE TO FOLLOW FOR NEEDS. Addendum: 02/28/21 at 1152 by Tiff Gee DC PLANNING: CORRECTION TO LIVING ARRANGEMENTS PATIENT RESIDES WITH HER SON ELIEZER NOLASCO. HER OTHER SON YARITZA NOLASCO LIVES ACROSS THE [address] AND PROVIDES ASSISTANCE. ERMIASLANA'S CELL PHONE NUMBER IS [phone] PATIENTS DEIDRE PIÑA ASSISTS MUCH HE CAN, PER ELIEZER VIGIL WORKS. ASKED YARITZA TO DISCUSS SNF PLACEMENT, HE NOW STATES THAT THEY WANT HER HOME. ASKED IF I COULD CALL BACK WITH A RISK CONTROL REPRESENTATIVE TO DISCUSS, YARITZA AGREED, CALLED BACK WITH A Khush RISK CONTROL REPRESENTATIVE X 2, WENT TO . [place] THEN SPOKE WITH PATIENT DEIDRE FERRO WHO STATES HE WILL COME INTO THE HOSPITAL WITH YARITZA TO DISCUSS DC PLANS AND ARRANGEMENTS. CM WILL CONTINUE TO FOLLOW FOR NEEDS. Addendum: 02/28/21 at 1342 by Tiff Gee CM DC PLANNING: SPOKE WITH PAULINA BY PHONE. GAVE PHONE NUMBERS FOR [facility] AND [facility] IN CASE FAMILY WANTS TO PAY OUT OF POCKET FOR O2 WHICH PILLO STATES THEY MIGHT WANT TO DO. PAULINA IN AGREEMENT WITH [facility] FINDING A HOME HEALTH AGENCY WITH MANDARIN SPEAKING NURSES, HAS NO PREFERENCE. PATIENT ADDRESS [id number] [facility] [id number]. Addendum: 02/28/21 at 1525 by Ame Fischer RN DC PLANNING: FAXED PAPERWORK TO [facility]. TO FOLLOW
[2021-02-27 16:00] VITALS: BP 93/63
--- NOTE | 2021-02-27 16:51 | NUR ---
RECEIVED CRITICAL VALUE APTT 59.7 NO CHANGED IN HEPARIN DRIP NEXT APPT DRAW AT 2200.
--- NOTE | 2021-02-27 18:29 | NUR ---
BEDSIDE WITH PT. PT AWAKE AND STABLE. ADMINISTERED SCHEDULED MEDICATION.
--- NOTE | 2021-02-27 19:31 | NUR ---
ENDORSED TO NIGHT NURSE FOR CONTINUITY OF CARE. PT IS STABLE.
--- NOTE | 2021-02-27 19:35 | NUR ---
REPORT GIVEN BY SOURAV HI. PER REPORT THAT PT IS ALERT X4. TURKISH SPEAKING ONLY. PT LYING ON THE BED AT THIS TIME .PILLO NEPHEW AT BED SIDE. PT NO S/S OF DISTRESS, NO SOB AT HIS TIME. PT ON ROOM AIR. SR ON TELE MONITOR. SKIN WARM TO TOUCH. IV LINE RAC NO 20 WITH HEPARIN DRIPS RUNNING AT 950 UNITS/HR. SKIN INTACT. GENTLE CARE GIVEN. KEPT CLEAN AND DRY.
[2021-02-27 20:00] VITALS: BP 98/67
[2021-02-27] MEDS: DOCUSATE SODIUM 100 MG GELCAP PO SCH (20:47)
--- NOTE | 2021-02-27 21:00 | NUR ---
HEPARIN SQ DID NOT GIVEN D/T PT STILL ON HEPARIN DRIPS.
--- NOTE | 2021-02-27 22:20 | NUR ---
PER CHARGE NURSE THAT TO D/C HEPARIN DRIPS AND START HEPARIN SQ IN AM. ORDER WERE CARRIED OUT BY CHARGE NURSE. PT IS STABLE AT THIS TIME.
[2021-02-28] VITALS: BP 95/60
--- NOTE | 2021-02-28 | NUR ---
PT SLEEP WELL AT THIS TIME.
[2021-02-28] MEDS: ONDANSETRON 4 MG TAB PO SCH ×3 (00:11→12:00)
[2021-02-28 04:00] VITALS: BP 98/67
--- NOTE | 2021-02-28 04:51 | NUR ---
PT AWAKE NO SOB. STABLE AT THIS TIME.
[2021-02-28 06:19] LABS: BASOPHILS # (AUTO) 0.1 K/uL (0.00-0.22); BASOPHILS % (AUTO) 1.2 % (0.0-2.0); EOSINOPHILS # (AUTO) 0.2 K/uL (0-0.4); EOSINOPHILS % (AUTO) 2.8 % (0.0-4.0); HEMATOCRIT 31.6 % (36-48); HEMOGLOBIN 10.1 g/dL (12.0-16.0); LYMPHOCYTES % (AUTO) 35.7 % (20.5-51.1); MEAN CORPUSCULAR HEMOGLOBIN 28 pg (27-31); MEAN CORPUSCULAR HGB CONC 32 g/dL (33-37); MEAN CORPUSCULAR VOLUME 86.4 fL (80-94); MONOCYTES # (AUTO) 0.6 K/uL (0.8-1.0); MONOCYTES % (AUTO) 10.4 % (1.7-9.3); NEUTROPHILS # (AUTO) 2.8 K/uL (1.8-7.7); NEUTROPHILS % (AUTO) 49.9 % (42.2-75.2); PLATELET COUNT (AUTO) 333 K/uL (140-450); RED BLOOD CELL COUNT(AUTO) 3.66 MIL/uL (4.20-5.40); RED CELL DISTRIBUTION WIDTH 14.7 % (11.6-13.7); WHITE BLOOD COUNT (AUTO) 5.6 K/uL (4.8-10.8)
[2021-02-28 06:44] LABS: CHOL/HDL RATIO 3.2 (1-4.5)
[2021-02-28 07:05] LABS: ANION GAP 11.7 (8-16); CARBON DIOXIDE 22.8 mmol/L (21-32); CHLORIDE 111 mmol/L (98-107); CREATININE 1.1 mg/dL (0.6-1.3); GLUCOSE 105 mg/dL (74-106); POTASSIUM 3.5 mmol/L (3.5-5.1); SODIUM SERUM 142 mmol/L (136-145); UREA NITROGEN, BLOOD 19 mg/dL (7-18)
--- NOTE | 2021-02-28 07:30 | NUR ---
RECEIVED REPORT FROM RATING EXAMINER. AOX4. SYRIAC SPEAKING ONLY. PT IN BED, NO C/O PAIN, NO S/S OF DISTRESS, NO SOB AT HIS TIME. PT ON ROOM AIR. SR ON TELE MONITOR. SKIN WARM TO TOUCH. IV LINE RAC 20G ON SL. SKIN INTACT. KEPT CLEAN AND DRY. CALL LIGHT WITHIN REACH, WILL CONTINUE TO MONITOR
--- NOTE | 2021-02-28 07:38 | NUR ---
REPORT GIVEN TO YNES HI. PT IS AWAKE.
[2021-02-28 08:00] VITALS: BP 103/63
[2021-02-28] MEDS: DICLOFENAC 25 MG TABEC PO SCH (08:51)
[2021-02-28] MEDS: CLOPIDOGREL 75 MG TAB PO SCH (08:51)
[2021-02-28] MEDS: DOCUSATE SODIUM 100 MG GELCAP PO SCH ×2 (08:51→21:06)
[2021-02-28] MEDS: PANTOPRAZOLE 40 MG TABEC PO SCH (08:51)
[2021-02-28] MEDS: amLODIPine 5 MG TAB PO SCH (08:51)
[2021-02-28] MEDS: MONTELUKAST SODIUM 10 MG TAB PO SCH (08:51)
[2021-02-28] MEDS: LORATADINE 10 MG TAB PO SCH (08:51)
[2021-02-28] MEDS ORDERED: NON-FORMULARY ITEM (Omeprazole* (Prilosec*) 20 MG) PO SCH (09:00)
[2021-02-28] MEDS ORDERED: NON-FORMULARY ITEM (Cetirizine HCl (Zyrtec) 1 TAB) PO SCH (09:00)
[2021-02-28] MEDS ORDERED: CETIRIZINE HCL PO SCH (09:00)
--- NOTE | 2021-02-28 09:10 | NUR ---
DUE MORNING MEDS GIVEN. TOLERATED WELL
--- NOTE | 2021-02-28 10:00 | NUR ---
WITH EPISODES OF SOB DURING PHYSICAL ACTIVITY, SUBSIDES WHEN AT REST
[2021-02-28 12:00] VITALS: BP 99/58
--- NOTE | 2021-02-28 12:45 | NUR ---
DR MCKEON AND FAMILY AT BEDSIDE, DISCUSSED PLAN OF CARE
--- NOTE | 2021-02-28 15:20 | NUR ---
PT AWAKE IN BED, NO C/O PAIN, NO SOB AT REST
[2021-02-28 16:00] VITALS: BP 96/65
--- NOTE | 2021-02-28 17:49 | NUR ---
PT UNDERGOING VQ SCAN. TECH AND FAMILY AT BEDSIDE
[2021-02-28 18:36] LABS: APPEARANCE,URINE CLOUDY (CLEAR); BILIRUBIN,URINE 2+ (NEGATIVE); BLOOD, URINE 1+ (NEGATIVE); COLOR,URINE YELLOW (YELLOW); LEUKOCYTE ESTERASE ,URINE NEGATIVE (NEGATIVE); NITRITE, URINE NEGATIVE (NEGATIVE); UGLUCOSE NEGATIVE (NEGATIVE)
[2021-02-28 18:42] LABS: RBC,URINE 11-20 (MOD) /HPF (0-5)
[2021-02-28 18:43] LABS: URINE AMORPHOUS URATE 2+ /HPF (None Seen)
--- NOTE | 2021-02-28 19:10 | NUR ---
RECEIVED PATIENT FROM AM SHIFT NURSE FOR CONTINUITY OF CARE. ALERT AND ABLE TO MAKE NEEDS KNOWN. RESPIRATIONS EVEN, UNLABORED. NO S/S RESPIRATORY DISTRESS. S1/S2 AUSCULTATED. TELE MONITORING. SKIN WARM, DRY. SALINE LOCK TO RIGHT AC 20G PATENT/INTACT. NO C/O PAIN. ABDOMEN SOFT, NONTENDER, NONDISTENDED. BOWEL SOUNDS ACTIVE x4 QUADRANTS. PATIENT IS CONTINENT OF B/B. PLAN OF CARE DISCUSSED WITH SON OVER THE PHONE. CALL LIGHT IN REACH. Addendum: 02/28/21 at 2218 by Lupis Ruth RN AMEND TO "PLAN OF CARE DISCUSSED WITH PATIENT AND SON OVER THE PHONE".
[2021-02-28 20:00] VITALS: BP 91/63
[2021-02-28] MEDS: THEOPHYLLINE 300 MG TABER PO SCH (21:06)
--- NOTE | 2021-02-28 21:33 | NUR ---
DUE MEDS GIVEN. PATIENT RESTING COMFORTABLY IN BED. NO S/S ACUTE DISTRESS. NO C/O PAIN. NO S/S RESPIRATORY DISTRESS. CALL LIGHT IN REACH.
--- NOTE | 2021-02-28 23:15 | NUR ---
PATIENT RESTING COMFORTABLY IN BED. NO C/O PAIN. NO S/S RESPIRATORY DISTRESS. CALL LIGHT WITHIN REACH AT ALL TIMES.
[2021-03-01] VITALS: BP 101/69
--- NOTE | 2021-03-01 01:14 | NUR ---
MADE ROUNDS. PATIENT IS ASLEEP. NO S/S ACUTE DISTRESS. CALL LIGHT IN REACH AT ALL TIMES.
--- NOTE | 2021-03-01 03:05 | NUR ---
PATIENT ASLEEP. NO S/S ACUTE DISTRESS. CALL LIGHT WITHIN REACH AT ALL TIMES.
[2021-03-01 04:00] VITALS: BP 94/55
--- NOTE | 2021-03-01 05:05 | NUR ---
PATIENT IS RESTING COMFORTABLY IN BED. NO C/O PAIN. NO S/S RESPIRATORY DISTRESS. CALL LIGHT IN REACH AT ALL TIMES.
[2021-03-01 07:22] LABS: BASOPHILS # (AUTO) 0.1 K/uL (0.00-0.22); BASOPHILS % (AUTO) 1.2 % (0.0-2.0); EOSINOPHILS # (AUTO) 0.1 K/uL (0-0.4); EOSINOPHILS % (AUTO) 1.6 % (0.0-4.0); HEMOGLOBIN 10.7 g/dL (12.0-16.0); LYMPHOCYTES # (AUTO) 2.2 K/uL (2.5-16.5); LYMPHOCYTES % (AUTO) 36.2 % (20.5-51.1); MEAN CORPUSCULAR HEMOGLOBIN 27 pg (27-31); MEAN CORPUSCULAR HGB CONC 32 g/dL (33-37); MEAN CORPUSCULAR VOLUME 84.9 fL (80-94); MONOCYTES # (AUTO) 0.5 K/uL (0.8-1.0); MONOCYTES % (AUTO) 7.7 % (1.7-9.3); NEUTROPHILS # (AUTO) 3.2 K/uL (1.8-7.7); NEUTROPHILS % (AUTO) 53.3 % (42.2-75.2); PLATELET COUNT (AUTO) 334 K/uL (140-450); RED BLOOD CELL COUNT(AUTO) 3.89 MIL/uL (4.20-5.40); RED CELL DISTRIBUTION WIDTH 14.8 % (11.6-13.7); WHITE BLOOD COUNT (AUTO) 5.9 K/uL (4.8-10.8)
[2021-03-01 07:31] LABS: ANION GAP 13.2 (8-16); CHLORIDE 110 mmol/L (98-107); CREATININE 1.1 mg/dL (0.6-1.3); GLUCOSE 108 mg/dL (74-106); POTASSIUM 3.2 mmol/L (3.5-5.1); SODIUM SERUM 143 mmol/L (136-145); UREA NITROGEN, BLOOD 22 mg/dL (7-18)
[2021-03-01 07:50] LABS: PHOSPHORUS 3.5 mg/dL (2.5-4.9)
[2021-03-01 08:00] VITALS: BP 102/67
[2021-03-01] MEDS: DOCUSATE SODIUM 100 MG GELCAP PO SCH ×2 (09:01→20:22)
[2021-03-01] MEDS: THEOPHYLLINE 300 MG TABER PO SCH ×2 (09:02→20:22)
[2021-03-01] MEDS: DICLOFENAC 25 MG TABEC PO SCH (09:02)
[2021-03-01] MEDS: MONTELUKAST SODIUM 10 MG TAB PO SCH (09:03)
[2021-03-01] MEDS: CLOPIDOGREL 75 MG TAB PO SCH (09:03)
[2021-03-01] MEDS: amLODIPine 5 MG TAB PO SCH (09:03)
[2021-03-01] MEDS: LORATADINE 10 MG TAB PO SCH (09:03)
[2021-03-01] MEDS: PANTOPRAZOLE 40 MG TABEC PO SCH (09:04)
--- NOTE | 2021-03-01 09:12 | NUR ---
CHECKED BP PRIOR TO MEDS ADMINISTER, BP 112/73 PULSE 82. ADMINISTERED AM SCHEDULED MEDS, MEDS EDUCATION PROVIDED TO PATIENT AND SON AT BEDSIDE, BOTH VERBALIZED UNDERSTANDING. POTASSIUM 3.2 FROM AM LAB, 40 MEQ K-DUR REPLENISHED. DISCUSSED PLAN OF CARE WITH SON AND PATIENT AT BEDSIDE, BOTH VERBALIZED UNDERSTANDING. DENIED ANY DISTRESS AT THIS TIME. NO SIGNS OF ACUTE DISTRESS NOTED. SAFETY MEASURES IN PLACE. INSTRUCTED PATIENT TO USE THE CALL LIGHT FOR ANY ASSISTANCE.
--- NOTE | 2021-03-01 11:40 | NUR ---
PATIENT AWAKE AND TALKING TO FAMILY AT BEDSIDE. DENIED OF ANY DISTRESS. SAFETY MEASURES IN PLACE.
[2021-03-01 12:00] VITALS: BP 101/62
--- NOTE | 2021-03-01 13:40 | NUR ---
PATIENT IS AWAKE AND RESTING ON BED AT THIS TIME. DENIED OF ANY DISTRESS. TELE MONITOR IN PLACE. NO SIGNS OF ACUTE DISTRESS NOTED. SAFETY MEASURES IN PLACE.
--- NOTE | 2021-03-01 15:35 | NUR ---
PATIENT IS NAPPING ON BED AND AROUSABLE TO VOICE. NO SIGNS OF ACUTE DISTRESS NOTED. SAFETY MEASURES IN PLACE.
[2021-03-01 16:00] VITALS: BP 120/59
--- NOTE | 2021-03-01 17:33 | NUR ---
PATIENT IS AMBULATING AROUND HER ROOM, DENIED OF ANY DISTRESS. SAFETY MEASURES IN PLACE.
--- NOTE | 2021-03-01 19:22 | NUR ---
ENDORSED PATIENT TO CLEANING TEAM MEMBER NURSE FOR CONTINUITY OF CARE. PATIENT IS IN STABLE CONDITION.
--- NOTE | 2021-03-01 19:22 | NUR ---
RECEIVED PATIENT FROM AM SHIFT NURSE FOR CONTINUITY OF CARE. ALERT AND ABLE TO MAKE NEEDS KNOWN. RESPIRATIONS EVEN, UNLABORED. NO S/S RESPIRATORY DISTRESS. S1/S2 AUSCULTATED. TELE MONITORING. SKIN WARM, DRY. SALINE LOCK TO RIGHT AC 20G PATENT/INTACT. NO C/O PAIN. ABDOMEN SOFT, NONTENDER, NONDISTENDED. BOWEL SOUNDS ACTIVE x4 QUADRANTS. PATIENT IS CONTINENT OF B/B. PLAN OF CARE DISCUSSED. CALL LIGHT IN REACH.
[2021-03-01 20:00] VITALS: BP 102/59
--- NOTE | 2021-03-01 21:30 | NUR ---
DUE MEDS GIVEN. PATIENT RESTING COMFORTABLY IN BED. NO S/S ACUTE DISTRESS. CALL LIGHT IN REACH AT ALL TIMES.
--- NOTE | 2021-03-01 23:30 | NUR ---
PATIENT RESTING COMFORTABLY IN BED. NO S/S ACUTE DISTRESS. CALL LIGHT IN REACH AT ALL TIMES.
[2021-03-02] VITALS: BP 93/55
--- NOTE | 2021-03-02 01:06 | NUR ---
MADE ROUNDS. PATIENT IS ASLEEP. NO S/S ACUTE DISTRESS. NO S/S RESPIRATORY DISTRESS. CALL LIGHT IN REACH AT ALL TIMES.
--- NOTE | 2021-03-02 03:05 | NUR ---
PATIENT IS ASLEEP.
[2021-03-02 04:00] VITALS: BP 95/55
--- NOTE | 2021-03-02 05:00 | NUR ---
PATIENT IS RESTING COMFORTABLY IN BED. NO C/O PAIN. NO S/S RESPIRATORY DISTRESS. NO S/S ACUTE DISTRESS. CALL LIGHT IN REACH AT ALL TIMES.
[2021-03-02 07:10] LABS: BASOPHILS # (AUTO) 0.1 K/uL (0.00-0.22); BASOPHILS % (AUTO) 1.4 % (0.0-2.0); EOSINOPHILS # (AUTO) 0.1 K/uL (0-0.4); EOSINOPHILS % (AUTO) 2.6 % (0.0-4.0); HEMATOCRIT 29.4 % (36-48); HEMOGLOBIN 9.5 g/dL (12.0-16.0); LYMPHOCYTES # (AUTO) 1.8 K/uL (2.5-16.5); LYMPHOCYTES % (AUTO) 32.2 % (20.5-51.1); MEAN CORPUSCULAR HEMOGLOBIN 28 pg (27-31); MEAN CORPUSCULAR HGB CONC 32 g/dL (33-37); MEAN CORPUSCULAR VOLUME 85.8 fL (80-94); MONOCYTES # (AUTO) 0.5 K/uL (0.8-1.0); NEUTROPHILS % (AUTO) 54.8 % (42.2-75.2); PLATELET COUNT (AUTO) 316 K/uL (140-450); RED BLOOD CELL COUNT(AUTO) 3.43 MIL/uL (4.20-5.40); RED CELL DISTRIBUTION WIDTH 14.5 % (11.6-13.7); WHITE BLOOD COUNT (AUTO) 5.4 K/uL (4.8-10.8)
[2021-03-02 07:26] LABS: ANION GAP 13.7 (8-16); CARBON DIOXIDE 22.8 mmol/L (21-32); CHLORIDE 112 mmol/L (98-107); CREATININE 1.1 mg/dL (0.6-1.3); GLUCOSE 99 mg/dL (74-106); POTASSIUM 3.5 mmol/L (3.5-5.1); SODIUM SERUM 145 mmol/L (136-145); UREA NITROGEN, BLOOD 18 mg/dL (7-18)
[2021-03-02 07:35] LABS: MAGNESIUM 1.7 mg/dL (1.8-2.4); PHOSPHORUS 2.9 mg/dL (2.5-4.9)
[2021-03-02 08:00] VITALS: BP 98/68
[2021-03-02] MEDS: MONTELUKAST SODIUM 10 MG TAB PO SCH (08:14)
[2021-03-02] MEDS: CLOPIDOGREL 75 MG TAB PO SCH (08:15)
[2021-03-02] MEDS: amLODIPine 5 MG TAB PO SCH (08:15)
[2021-03-02] MEDS: LORATADINE 10 MG TAB PO SCH (08:16)
[2021-03-02] MEDS: DICLOFENAC 25 MG TABEC PO SCH (08:16)
[2021-03-02] MEDS: THEOPHYLLINE 300 MG TABER PO SCH (08:16)
[2021-03-02] MEDS: PANTOPRAZOLE 40 MG TABEC PO SCH (08:17)
[2021-03-02] MEDS: DOCUSATE SODIUM 100 MG GELCAP PO SCH (08:17)
--- NOTE | 2021-03-02 08:20 | NUR ---
BP CHECKED PRIOR TO MED ADMINISTER, BP 108/62 PULSE 72. ADMINISTERED SCHEDULED MEDS PER MD ORDER, MEDS EDUCATION PROVIDED, PATIENT VERBALIZED UNDERSTANDING. PATIENT TOLERATED PO AND SUBQ WELL. DISCUSSED PLAN OF CARE WITH PATIENT, PATIENT VERBALIZED UNDERSTANDING. PATIENT AWAKE AND RESTING ON BED AT THIS TIME. DENIED OF ANY DISTRESS. SAFETY MEASURES IN PLACE. BED IN LOW POSITION, CALL LIGHT WITHIN REACH. INSTRUCTED PATIENT TO USE THE CALL LIGHT FOR ANY ASSISTANCE.
--- NOTE | 2021-03-02 09:25 | NUR ---
PATIENT IS TALKING TO SON AT BEDSIDE. NO SIGNS OF ACUTE DISTRESS NOTED. SAFETY MEASURES IN PLACE.
[2021-03-02] MEDS ORDERED: AMLO5TAB PO (10:18)
[2021-03-02] MEDS ORDERED: FURO-572 PO (10:18)
[2021-03-02] MEDS ORDERED: [UNRECOGNIZED DRUG - CODE] PO (10:18)
--- NOTE | 2021-03-02 10:41 | NUR ---
INFORMED PATIENT THAT SHE WILL BE DC HOME WITH HOME HEALTH TODAY. PATIENT WAS AWARE AND AGREED. SHES SAID HER SON WILL BE ABLE TO TAKE HER HOME AROUND NOON. WILL PREPARE DC PAPERS.
--- NOTE | 2021-03-02 10:59 | NUR ---
MAG 1.7 FROM AM LAB, REPLENISHED WITH PRN 2G MAG RIDER, MED EDUCATION PROVIDED TO PATIENT, ANSWERED ALL PATIENT'S QUESTIONS, PATIENT VERBALIZED UNDERSTANDING. PATIENT IS RESTING ON BED AT THIS TIME. NO SIGNS OF ACUTE DISTRESS NOTED. SAFETY MEASURES IN PLACE.
--- NOTE | 2021-03-02 11:36 | NUR ---
PATIENT IS RESTING ON BED AT THIS TIME. MAG IS STILL RUNNING AT 25 ML/HR. DENIED OF ANY DISTRESS. SAFETY MEASURES IN PLACE.
[2021-03-02 12:00] VITALS: BP 90/59
--- NOTE | 2021-03-02 12:15 | NUR ---
DC INSTRUCTION PROVIDED TO PATIENT AND SON AT BEDSIDE. EDUCATED PATIENT TO FOLLOW UP WITH PCP AFTER DC FROM HOSPITAL WITHIN 3-5 DAYS, CONTINUE WITH MEDICATION REGIMENS, IF ANY WORSEN AND IN CASE OF LIFE THREATENING EMERGENCY, CALL 911 OR GO TO THE NEAR EMERGENCY ROOM, BOTH VERBALIZED UNDERSTANDING. PATIENT IS RESTING ON BED AT THIS TIME, AND MAG RIDER IS STILL RUNNING AND 15 MORE MIN LEFT. NO SIGNS OF ACUTE DISTRESS NOTED. SAFETY MEASURES IN PLACE.
--- NOTE | 2021-03-02 12:36 | NUR ---
REMOVED IV, CANNULA INTACT, NO BLEEDING ON IV SITE. REMOVED ALL ID WRIST BANDS AND TELE MONITOR. PATIENT CHANGED INTO HER OWN CLOTHES. SON HELPED PACK UP ALL PATIENT'S BELONGINGS. DC DOCUMENT PROVIDED AND PATIENT WAS AWARE PRESCRIBED MED SEND TO [facility] [place]. ESCORTED PATIENT WITH WHEELCHAIR TO THE FRONT LOBBY. PATIENT IS GOING TO DC HOME ACCOMPANY WITH HER SON. PATIENT IS IN STABLE CONDITION.
== END 2021-03-02 12:36 | disposition home or self-care (01) | DRG 291 ==
LOC: MED 19:06 → UNDOADMIN 21:54 → MTU 21:54
DX: I11.0 Hypertensive heart disease with heart failure (principal); E43 Unspecified severe protein-calorie malnutrition; I24.8 Other forms of acute ischemic heart disease; I50.43 Acute on chronic combined systolic (congestive) and diastolic (congestive) heart failure; Z68.25 Body mass index [BMI] 25.0-25.9, adult; I27.20 Pulmonary hypertension, unspecified; K21.9 Gastro-esophageal reflux disease without esophagitis; J30.9 Allergic rhinitis, unspecified; E87.6 Hypokalemia; R94.31 Abnormal electrocardiogram [ECG] [EKG]; E86.0 Dehydration; D64.9 Anemia, unspecified; I07.1 Rheumatic tricuspid insufficiency
CPT/HCPCS: 36415; 71045; 78582; 80048; 80053; 81001; 82150; 83036; 83690; 83735; 83880; 84100; 84134; 84443; 84484; 85025; 85610; 85730; 86140; 86160; 86430; 87081; 87086; 93005; 96360; 97110; 97116; 97163-GP; 97530; 99291; J1644; J3475; Q0162